=== PATIENT | male | born 2000 | race Two or more races ===

== ENCOUNTER 2021-09-10 18:50 | Emergency (ER) | payer MEDICAID, OTHER ==
[~2021-09-10] VITALS: Ht 188 cm; Wt 158.8 kg
[2021-09-10] MEDS ORDERED: PENICILLIN G BENZ 1200000 UNITS/2 ML SYRG IM ONE (22:00)
[2021-09-10] MEDS ORDERED: DexAMETHasone SOD PHOS 10MG/1ML VIAL INJ IM ONE (22:00)
[2021-09-10 22:35] VITALS: BP 148/81
== END 2021-09-10 22:40 | disposition home or self-care (01) ==
LOC: ER 18:50
DX: J02.9 Acute pharyngitis, unspecified (principal)
CPT/HCPCS: 96372; 99284; J0561; J1100

== ENCOUNTER 2021-09-14 01:07 | Emergency (ER) | payer MEDICAID ==
[~2021-09-14] VITALS: Ht 188 cm; Wt 158.8 kg
[2021-09-14] MEDS ORDERED: CEPH-322 PO (05:12)
[2021-09-14 05:45] VITALS: BP 135/79
[2021-09-14] MEDS ORDERED: KETOROLAC TROMETH 30 MG/ML 1ML VIAL IM ONE (05:45)
== END 2021-09-14 05:50 | disposition home or self-care (01) ==
LOC: ER 01:07
DX: S90.822A Blister (nonthermal), left foot, initial encounter (principal); L83 Acanthosis nigricans; Z79.899 Other long term (current) drug therapy; X58.XXXA Exposure to other specified factors, initial encounter; Y93.89 Activity, other specified; Y92.89 Other specified places as the place of occurrence of the external cause; Y99.8 Other external cause status